=== PATIENT | male | born 1975 | race African-American/Black ===

== ENCOUNTER 2023-02-21 02:31 | Emergency (ER) | payer OTHER ==
[2023-02-21 02:42] VITALS: RESP 16; TEMP 98.6
[2023-02-21] MEDS ORDERED: KETOROLAC 15 MG/ML 1 ML VIAL IM STA (03:08)
--- NOTE | 2023-02-21 04:17 | ED ---
Chest Pain HPI - General Chief Complaint: Chest Pain Stated Complaint: Chest pain Time Seen by Provider: 02/21/23 02:40 Source: patient, EMS Mode of arrival: EMS Limitations: no limitations - History of Present Illness Initial Comments: 47-year-old male with past history of alcohol abuse, rhabdomyolysis who presents to the emergency department from [place]. States that he was having trouble sleeping because he was having bilateral flank pain with dark urine. States that he was having painful urination. Reports to history of similar symptoms in the past when he was in rhabdomyolysis. States that he has had it twice. He also reports a left-sided chest wall pain. Reports a history of [place] with no stent placement. The chest pain is an achy sensation without radiation. No associated shortness of breath. No fevers, chills or cough. Denies history of DVT or PE. No calf pain or swelling. He is at [place]. States his last drink of alcohol was 4 days ago. No other alleviating, precipitating or modifying factors - Related Data Allergies Allergy/AdvReac Type Severity Reaction Status Date / Time No Known Allergies Allergy Verified 07/26/22 11:06 Review of Systems ROS Statement: Those systems with pertinent positive or pertinent negative responses have been documented in the HPI. ROS Other: All systems not noted in ROS Statement are negative. Past Medical History Past Medical History: Asthma, Hypertension, Myocardial Infarction ([place]) Additional Past Medical History / Comment(s): rhabdomylosis, etoh withdrawl seizures History of Any Multi-Drug Resistant Organisms: None Reported Past Surgical History: Orthopedic Surgery Past Psychological History: Bipolar, PTSD Smoking Status: Current every day smoker Past Alcohol Use History: Daily Past Drug Use History: None Reported General Exam Limitations: no limitations General appearance: alert, in no apparent distress Head exam: Present: atraumatic, normocephalic, normal inspection Eye exam: Present: normal appearance, PERRL, EOMI. Absent: scleral icterus, conjunctival injection, periorbital swelling ENT exam: Present: normal exam, mucous membranes moist Neck exam: Present: normal inspection. Absent: tenderness, meningismus, lymphadenopathy Respiratory exam: Present: normal lung sounds bilaterally. Absent: respiratory distress, wheezes, rales, rhonchi, stridor Cardiovascular Exam: Present: regular rate, normal rhythm, normal heart sounds. Absent: systolic murmur, diastolic murmur, rubs, gallop, clicks GI/Abdominal exam: Present: soft, normal bowel sounds. Absent: distended, tenderness, guarding, rebound, rigid Extremities exam: Present: normal inspection, full ROM, normal capillary refill. Absent: tenderness, pedal edema, joint swelling, calf tenderness Back exam: Present: normal inspection Neurological exam: Present: alert, oriented X3, CN II-XII intact Psychiatric exam: Present: normal affect, normal mood Skin exam: Present: warm, dry, intact, normal color. Absent: rash Course Vital Signs 02/21/23 02/21/23 02:35 05:30 Temperature 98.6 F 98.6 F Pulse Rate 82 77 Respiratory 16 16 Rate Blood Pressure 163/89 155/104 O2 Sat by Pulse 98 96 Oximetry Chest Pain MDM - MDM Was pt. sent in by a medical professional or institution (, [facility], CANAL EQUIPMENT MAINTENANCE SUPERVISOR, urgent care, hospital, or group home...) When possible be specific @ -No Did you speak to anyone other than the patient for history (EMS, parent, family, police, friend...)? What history was obtained from this source @ -Spoke with EMS who sent the patient in Review nursing and triage notes (agree or disagree)? Why? @ -I reviewed and agree with nursing and triage notes Were old charts reviewed (outside hosp., previous admission, EMS record, old EKG, old radiological studies, urgent care reports/EKG's, group home records)? Report findings @ -I checked the patient's chart for an old EKG however he does not have one Differential Diagnosis (chest pain, altered mental status, abdominal pain women, abdominal pain men, vaginal bleeding, weakness, fever, dyspnea, syncope, headache, dizziness, GI bleed, back pain, seizure, CVA, palpatations, mental health, musculoskeletal)? @ -Differential Chest Pain: Stable Angina, Unstable Angina, STEMI, NSTEMI Aortic Dissection, Pneumothorax, Musculoskeletal, Esophageal Spasm GERD, Cholecystitis, Pancreatitis, Zoster, this is not meant to be an all-inclusive list. EKG interpreted by me (3pts min.). @ -Yes and demonstrates sinus rhythm with a rate of 80. [place] interval 136. QRS 97. QTC of 394. Inverted T waves with ST depression 2, 3, aVF. J-point elevation the 1 through V3. No old for comparison X-rays interpreted by me (1pt min.). @ -Yes and demonstrates no acute intrathoracic process CT interpreted by me (1pt min.). @ -None done U/S interpreted by me (1pt. min.). @ -None done What testing was considered but not performed or refused? (CT, X-rays, U/S, labs)? Why? @ -Echo and serial troponins. Patient does not want to be admitted What meds were considered but not given or refused? Why? @ -None Did you discuss the management of the patient with other professionals ( professionals i.e. , PA, CANAL EQUIPMENT MAINTENANCE SUPERVISOR, lab, RT, psych nurse, clinical social work therapist, chair spring assembler, teacher, aoc operations intelligence officer, case picker)? Give summary @ -No Was smoking cessation discussed for >3mins.? @ -No Was critical care preformed (if so, how long)? @ -No Were there social determinants of health that impacted care today? How? (Homelessness, low income, unemployed, alcoholism, drug addiction, transportation, low edu. Level, literacy, decrease access to med. care, fpc, rehab)? @ -Patient is currently in rehab Was there de-escalation of care discussed even if they declined (Discuss DNR or withdrawal of care, Hospice)? DNR status @ -No What co-morbidities impacted this encounter? (DM, HTN, Smoking, COPD, CAD, Cancer, CVA, ARF, Chemo, Hep., AIDS, mental health diagnosis, sleep apnea, morbid obesity)? @ -etoh abuse, rhabdo, hx [place] Was patient admitted / discharged? Hospital course, mention meds given and route, prescriptions, significant lab abnormalities, going to OR and other p ertinent info. @ -Upon arrival patient was placed into room 4. A thorough history and physical exam is performed. He is placed on continuous pulse ox and cardiac monitoring. 12 lead EKG was obtained. Lab studies are conducted. Results are discussed with the patient. I did discuss diagnosis, differential and treatment options. I did recommend admission however patient would like to go home at this time. Informed him that he does have inverted T waves however he states that this is chronic for him. He states that his chest pain has resolved and he would like to go to go back to rehab. Patient is made aware of the risks of leaving and does accept these risks. He'll be discharged but needs to follow up with his primary care doctor for further management of his symptoms and return for any new or worsening symptoms. Patient was agreeable to the plan and was discharged back to [place] Undiagnosed new problem with uncertain prognosis? @ -yes Drug Therapy requiring intensive monitoring for toxicity (Heparin, Nitro, Insulin, Cardizem)? @ -No Were any procedures done? @ -No Diagnosis/symptom? @ -acute chest pain, acute dysuria Acute, or Chronic, or Acute on Chronic? @ -acute Uncomplicated (without systemic symptoms) or Complicated (systemic symptoms)? @ -complicated Side effects of treatment? @ -No Exacerbation, Progression, or Severe Exacerbation? @ -No Poses a threat to life or bodily function? How? (Chest pain, [place], [place], pneumonia, PE, COPD, DKA, ARF, appy, cholecystitis, CVA, Diverticulitis, Homicidal, Suicidal, threat to staff... and all critical care pts) @ -No Disposition Clinical Impression: Chest pain Disposition: HOME SELF-CARE Condition: Stable Instructions (If sedation given, give patient instructions): Chest Pain (ED) Additional Instructions: Please follow-up with your primary care doctor at your earliest convenience. Return to the emergency room for any new or worsening symptoms Is patient prescribed a controlled substance at d/c from ED?: No Referrals: Solomon Currie MD [Primary Care Provider] - 1-2 days Time of Disposition: 05:09
[2023-02-21] MEDS ORDERED: SODIUM CHLORIDE 0.9% 1,000 ML IV ONE (04:26)
[2023-02-21 04:40] LABS: ALT 55 U/L (4-49); AST 43 U/L (17-59); African American GFR (CKD) >90 (>60 ml/min/1.73 sqM); Albumin 4.1 g/dL (3.5-5.0); Alkaline Phosphatase 78 U/L (38-126); Anion Gap 8 mmol/L; Blood Urea Nitrogen 16 mg/dL (9-20); Calcium 9.3 mg/dL (8.4-10.2); Carbon Dioxide 24 mmol/L (22-30); Chloride 103 mmol/L (98-107); Creatine Kinase 852 U/L (55-170); Glucose 104 mg/dL (74-99); Lipase 130 U/L (23-300); Magnesium 2.1 mg/dL (1.6-2.3); Non-African American GFR(CKD) >90 (>60 ml/min/1.73 sqM); Sodium 135 mmol/L (137-145); Total Bilirubin 0.4 mg/dL (0.2-1.3); Total Protein 6.9 g/dL (6.3-8.2)
[2023-02-21 04:54] LABS: Basophils % (A) 0 %; Eosinophils # (A) 0.3 k/uL (0-0.7); Eosinophils % (A) 3 %; HCT 44.1 % (39.0-53.0); HGB 14.6 gm/dL (13.0-17.5); Lymphocytes # (A) 2.2 k/uL (1.0-4.8); Lymphocytes % (A) 22 %; MCH 32.4 pg (25.0-35.0); MCHC 33.2 g/dL (31.0-37.0); MCV 97.8 fL (80.0-100.0); Mean Platelet Volume 8.1; Monocytes # (A) 0.7 k/uL (0-1.0); Monocytes % (A) 7 %; Neutrophils # (A) 6.7 k/uL (1.3-7.7); Neutrophils % (A) 66 %; Platelet Count 240 k/uL (150-450); RBC 4.51 m/uL (4.30-5.90); WBC 10.1 k/uL (3.8-10.6)
[2023-02-21 04:57] LABS: Appearance,Urine Clear (Clear); Bilirubin,Urine Negative (Negative); Blood,Urine Negative (Negative); Color,Urine Colorless; Glucose,Urine (UA) Negative (Negative); Ketones,Urine Negative (Negative); Leukocyte Esterase,Urine Negative (Negative); Nitrite,Urine Negative (Negative); PH, Urine 6.5 (5.0-8.0); Protein,Urine Negative (Negative); Specific Gravity,Urine 1.016 (1.001-1.035); Urobilinogen,Urine <2.0 mg/dL (<2.0)
[2023-02-21 04:58] LABS: Prothrombin Time 10.7 sec (9.0-12.0)
--- NOTE | 2023-02-21 05:26 | XR ---
EXAM: XR Chest, 2 Views CLINICAL HISTORY: ITS.REASON XR Reason: Chest Pain TECHNIQUE: Frontal and lateral views of the chest. COMPARISON: No relevant prior studies available. FINDINGS: Lungs: Unremarkable. No consolidation. Pleural space: Unremarkable. No pneumothorax. Heart: Unremarkable. No cardiomegaly. Mediastinum: Unremarkable. Bones/joints: Mild dextroscoliosis of the thoracolumbar spine versus positional appearance. Degenerative changes. IMPRESSION: No acute findings in the chest.
[2023-02-21 05:39] VITALS: BP 155/104; PULSE 77
== END 2023-02-21 05:39 | disposition home or self-care (01) ==
LOC: EC 02:31
DX: R07.89 Other chest pain (principal); J45.909 Unspecified asthma, uncomplicated; I10 Essential (primary) hypertension; I25.2 Old myocardial infarction; F17.200 Nicotine dependence, unspecified, uncomplicated; Z86.59 Personal history of other mental and behavioral disorders
CPT/HCPCS: 36415; 93005; 80053; 82550; 83690; 83735; 84484; 85025; 85610; 85730; 81003; 71046; 99285; 96360; 96372; J1885

== ENCOUNTER 2023-10-21 23:26 | Inpatient (IN) | payer OTHER ==
--- NOTE | 2023-10-21 23:57 | ED ---
Chest Pain HPI - General Source: patient, RN notes reviewed, old records reviewed Mode of arrival: ambulatory Limitations: no limitations - History of Present Illness MD Complaint: chest pain -: hour(s) Onset: during rest, during exertion Pain Location: left chest Pain Radiation: none Severity: moderate Severity scale (1-10): 4 Quality: tightness, sharp Consistency: constant Improves With: nothing Anginal Symptoms: dyspnea, sense of impending doom Other Symptoms: palpitations Treatments Prior to Arrival: none <Osmin Gutierrez - Last Filed: 10/22/23 05:46> <Carlos Santo - Last Filed: 10/22/23 13:14> - General Chief Complaint: Chest Pain Stated Complaint: chest pain Mental health etoh Time Seen by Provider: 10/21/23 23:56 - History of Present Illness Initial Comments: This is a 47-year-old male to ER for evaluation of chest pain chest pain with severe alcohol intoxication and anxiety currently. Patient has history of high blood pressure and asthma history of recent drug use (Osmin Gutierrez) - Related Data Home Medications Medication Instructions Recorded Confirmed ARIPiprazole [Abilify] 10 mg PO HS 10/22/23 10/22/23 Acetaminophen Tab [Tylenol Tab] 1,000 mg PO Q6HR PRN 10/22/23 10/22/23 Albuterol Inhaler [Ventolin Hfa 2 puff INHALATION RT-Q4H PRN 10/22/23 10/22/23 Inhaler] Fluticasone Propion/Salmeterol 1 puff INHALATION RT-BID 10/22/23 10/22/23 [Advair 250-50 Diskus] Ibuprofen [Motrin] 800 mg PO Q8H PRN 10/22/23 10/22/23 Melatonin 10 mg PO HS PRN 10/22/23 10/22/23 Multivitamins, Thera [Multivitamin 1 tab PO DAILY 10/22/23 10/22/23 (formulary)] Nicotine 21Mg/24Hr Patch [Habitrol] 1 patch TRANSDERM DAILY PRN 10/22/23 10/22/23 amLODIPine [Norvasc] 5 mg PO DAILY 10/22/23 10/22/23 busPIRone HCl [Buspar] 10 mg PO TID PRN 10/22/23 10/22/23 hydrOXYzine pamoate [Vistaril] 50 mg PO TID PRN 10/22/23 10/22/23 hydrOXYzine pamoate [Vistaril] 100 mg PO HS PRN 10/22/23 10/22/23 traZODone HCL [Desyrel] 50 mg PO HS PRN 10/22/23 10/22/23 Allergies Allergy/AdvReac Type Severity Reaction Status Date / Time haloperidol Allergy eyes swell Verified 10/22/23 10:18 shut methylphenidate Allergy eyes swell Verified 10/22/23 10:18 [From Ritalin] shut Poultry [[place]] Allergy Swelling Verified 10/22/23 10:18 Review of Systems ROS Other: All systems not noted in ROS Statement are negative. <Osmin Gutierrez - Last Filed: 10/22/23 05:46> ROS Other: All systems not noted in ROS Statement are negative. <Carlos Santo - Last Filed: 10/22/23 13:14> ROS Statement: Those systems with pertinent positive or pertinent negative responses have been documented in the HPI. EKG Findings - EKG Comments: EKG Findings:: EKG is sinus tachycardia 100 NH 122 QRS 103 QTc 390 - EKG Results: EKG: interpreted by ERMD <Osmin Gutierrez - Last Filed: 10/22/23 05:46> Past Medical History Past Medical History: Asthma, Hypertension, Myocardial Infarction ([place]) Additional Past Medical History / Comment(s): rhabdomylosis, etoh withdrawl seizures History of Any Multi-Drug Resistant Organisms: None Reported Past Surgical History: Orthopedic Surgery Past Psychological History: Bipolar, PTSD Smoking Status: Current every day smoker Past Alcohol Use History: Abuse, Daily, Heavy Past Drug Use History: Cocaine <Osmin Gutierrez - Last Filed: 10/22/23 05:46> General Exam Limitations: no limitations General appearance: appears intoxicated, anxious Head exam: Present: atraumatic, normocephalic, normal inspection Eye exam: Present: normal appearance, PERRL, EOMI. Absent: scleral icterus, conjunctival injection, periorbital swelling ENT exam: Present: normal exam, mucous membranes moist Neck exam: Present: normal inspection. Absent: tenderness, meningismus, lymphadenopathy Respiratory exam: Present: normal lung sounds bilaterally. Absent: respiratory distress, wheezes, rales, rhonchi, stridor Cardiovascular Exam: Present: regular rate, normal rhythm, normal heart sounds. Absent: systolic murmur, diastolic murmur, rubs, gallop, clicks GI/Abdominal exam: Present: soft, normal bowel sounds. Absent: distended, tenderness, guarding, rebound, rigid Extremities exam: Present: normal inspection, full ROM, normal capillary refill. Absent: tenderness, pedal edema, joint swelling, calf tenderness Back exam: Present: normal inspection Neurological exam: Present: alert, oriented X3, CN II-XII intact Psychiatric exam: Present: normal affect, normal mood Skin exam: Present: warm, dry, intact, normal color. Absent: rash <Osmin Gutierrez - Last Filed: 10/22/23 05:46> Course <Osmin Gutierrez - Last Filed: 10/22/23 05:46> Vital Signs 10/21/23 10/22/23 10/22/23 23:49 00:35 10:41 Temperature 97.6 F Pulse Rate 103 H 103 H 95 Respiratory 20 19 18 Rate Blood Pressure 203/163 148/91 148/88 O2 Sat by Pulse 99 97 97 Oximetry - Reevaluation(s) Reevaluation #1: 10/22/23 03:42 Medical records reviewed (Osmin Gutierrez) Reevaluation #2: 10/22/23 03:42 Patient will be seeing psychiatric evaluation and receive psychiatric evaluation once clinically sober (Osmin Gutierrez) Reevaluation #3: Was pt. sent in by a medical professional or institution (, PA, DBA DEVELOPER, urgent care, hospital, or alf...) When possible be specific @ -no Did you speak to anyone other than the patient for history (EMS, parent, family, police, friend...)? What history was obtained from this source @ -no Did you review nursing and triage notes (agree or disagree)? Why? @ -agree Are old charts reviewed (outside hosp., previous admission, EMS record, old EKG, old radiological studies, urgent care reports/EKG's, alf records)? Report findings @ -yes Differential Diagnosis (chest pain, altered mental status, abdominal pain women, abdominal pain men, vaginal bleeding, weakness, fever, dyspnea, syncope, headache, dizziness, GI bleed, back pain, seizure, CVA, palpatations, mental health, musculoskeletal)? @ -prior EKG interpreted by me (3pts min.). @ -yes X-rays interpreted by me (1pt min.). @ -yes negative for acute disease CT interpreted by me (1pt min.). @ -no U/S interpreted by me (1pt. min.). @ -no What testing was considered but not performed or refused? (CT, X-rays, U/S, labs)? Why? @ -none What meds were considered but not given or refused? Why? @ -none Did you discuss the management of the patient with other professionals (professionals i.e. , PA, DBA DEVELOPER, lab, RT, psych nurse, oncology social work, associate medical director, teacher, chief lending officer, case making machine operator)? Give summary @ -no Was smoking cessation discussed for >3mins.? @ -no Was critical care preformed (if so, how long)? @ -no Were there social determinants of health that impacted care today? How? (Homelessness, low income, unemployed, alcoholism, drug addiction, transportation, low edu. Level, literacy, decrease access to med. care, care home, rehab)? @ -none Was there de-escalation of care discussed even if they declined (Discuss DNR or withdrawal of care, Hospice)? DNR status @ -no What co-morbidities impacted this encounter? (DM, HTN, Smoking, COPD, CAD, Cancer, CVA, ARF, Chemo, Hep., AIDS, mental health diagnosis, sleep apnea, morbid obesity)? @ -none Was patient admitted / discharged? Hospital course, mention meds given and route, prescriptions, significant lab abnormalities, going to OR and other pertinent info. @ - Undiagnosed new problem with uncertain prognosis? @ -no Drug Therapy requiring intensive monitoring for toxicity (Heparin, Nitro, Insulin, Cardizem)? @ -no Were any procedures done? @ -no Diagnosis/symptom? @ - Acute, or Chronic, or Acute on Chronic? @ -Acute Uncomplicated (without systemic symptoms) or Complicated (systemic symptoms)? @ -Complicated Side effects of treatment? @ -no Exacerbation, Progression, or Severe Exacerbation? @ -exacerbation Poses a threat to life or bodily function? How? (Chest pain, [place], [place], pneumonia, PE, COPD, DKA, ARF, appy, cholecystitis, CVA, Diverticulitis, Homicidal, Suicidal, threat to staff... and all critical care pts) @ -yes (Osmin Gutierrez) Reevaluation #4: Differential Chest Pain: Stable Angina, Unstable Angina, STEMI, NSTEMI Aortic Dissection, Pneumothorax, Musculoskeletal, Esophageal Spasm GERD, Cholecystitis, Pancreatitis, Zoster, this is not meant to be an all-inclusive list. (Osmin Gutierrez) Chest Pain MDM <Carlos Santo - Last Filed: 10/22/23 13:14> - [facility] Patient care signed out to me by previous shift physician, Dr. Schuyler Gómez. Briefly, patient is a 47-year-old male presents emergency department for alcohol intoxication along with anxiety. Plan at signout was to follow-up with pending EPS recommendations. EPS notified me at around 12:57 PM that patient showing significant signs of alcohol withdrawal along with hallucinations. Patient is alcohol dependent. They did not feel comfortable given his degree of withdrawal symptoms that he could be admitted to inpatient psychiatric unit. They request patient be admitted medically for alcohol withdrawal with psychiatry and consult. Case discussed with hospitalist for admission. (Carlos Santo) Disposition Is patient prescribed a controlled substance at d/c from ED?: No Time of Disposition: 05:45 <Osmin Gutierrez - Last Filed: 10/22/23 05:46> Decision Time: 12:59 <Carlos Santo - Last Filed: 10/22/23 13:14> Clinical Impression: Alcohol withdrawal Condition: Fair Referrals: Solomon Currie MD [Primary Care Provider] - 1-2 days
[2023-10-22] MEDS: cloNIDine HCL 0.1 MG TAB PO STA (00:25)
[2023-10-22] MEDS: SODIUM CHLORIDE 0.9% 500 ML 500 ML IV STA (00:47)
[2023-10-22] MEDS: SODIUM CHLORIDE 0.9% 1,000 ML IV STA (00:47)
[2023-10-22] MEDS: LORazepam 2 MG/ML INJ IV STA (00:49)
[2023-10-22 00:55] LABS: Basophils # (A) 0.1 k/uL (0-0.2); Basophils % (A) 1 %; Eosinophils # (A) 0.3 k/uL (0-0.7); Eosinophils % (A) 3 %; HCT 46.7 % (39.0-53.0); HGB 15.1 gm/dL (13.0-17.5); Lymphocytes % (A) 25 %; MCH 32.2 pg (25.0-35.0); MCHC 32.4 g/dL (31.0-37.0); MCV 99.4 fL (80.0-100.0); Mean Platelet Volume 7.3; Monocytes # (A) 0.6 k/uL (0-1.0); Monocytes % (A) 5 %; Neutrophils # (A) 7.5 k/uL (1.3-7.7); Neutrophils % (A) 64 %; Platelet Count 285 k/uL (150-450); RDW 13.1 % (11.5-15.5); WBC 11.6 k/uL (3.8-10.6)
--- NOTE | 2023-10-22 01:14 | XR ---
EXAM: XR Chest, 2 Views CLINICAL HISTORY: ITS.REASON XR Reason: Chest Pain TECHNIQUE: Frontal and lateral views of the chest. COMPARISON: No relevant prior studies available. FINDINGS: Lungs: No consolidation or mass. Pleural space: No effusion. Heart: No cardiomegaly. Bones/joints: No acute findings. IMPRESSION: No acute cardiopulmonary process.
[2023-10-22 01:15] LABS: ALT 61 U/L (4-49); AST 58 U/L (17-59); African American GFR (CKD) >90 (>60 ml/min/1.73 sqM); Albumin 4.4 g/dL (3.5-5.0); Alkaline Phosphatase 68 U/L (38-126); Anion Gap 11 mmol/L; Blood Urea Nitrogen 23 mg/dL (9-20); Calcium 8.9 mg/dL (8.4-10.2); Carbon Dioxide 24 mmol/L (22-30); Chloride 108 mmol/L (98-107); Glucose 81 mg/dL (74-99); Lipase 162 U/L (23-300); Magnesium 2.2 mg/dL (1.6-2.3); Non-African American GFR(CKD) 80 (>60 ml/min/1.73 sqM); Potassium 4.5 mmol/L (3.5-5.1); Sodium 143 mmol/L (137-145); Total Bilirubin 0.5 mg/dL (0.2-1.3)
[2023-10-22 01:20] LABS: Alcohol 179 mg/dL
[2023-10-22 02:32] LABS: Prothrombin Time 10.8 sec (10.0-12.5)
[2023-10-22 02:43] LABS: Amphetamine Screen,Urine Not Detected (NotDetected); Barbiturate Screen,Urine Not Detected (NotDetected); Benzodiazepines Screen,Urine Detected (NotDetected); Cocaine Screen,Urine Not Detected (NotDetected); Methadone Screen, Urine Not Detected (NotDetected); Opiate Screen,Urine Not Detected (NotDetected); Oxycodone Screen, Urine Not Detected (NotDetected); Phencyclidine Screen,Urine Not Detected (NotDetected); Tricyclic Antidepressant,Urine Not Detected (NotDetected); Urn Cannabinoid Scrn Not Detected (NotDetected)
[2023-10-22] MEDS: ACETAMINOPHEN TAB 500 MG TAB PO STA (06:33)
[2023-10-22] MEDS: IPRATROPIUM-ALBUTEROL 3 ML NEB INHALATION ONE (07:18)
[2023-10-22] MEDS: ALBUTEROL HFA INHALER INHALATION ONE (08:47)
[2023-10-22 11:24] VITALS: RESP 18
[2023-10-22] MEDS ORDERED: LORazepam 2 MG/ML INJ IV PRN ×2 (12:56)
[2023-10-22] MEDS ORDERED: NALOXONE 0.4 MG/ML 1 ML VIAL IV PRN (13:12)
[2023-10-22] MEDS: LORazepam 2 MG/ML INJ IV PRN (14:23)
[2023-10-22] MEDS: THIAMINE 100 MG/ML 2 ML VIAL IM STA (17:25)
--- NOTE | 2023-10-22 17:39 | P.HPIM ---
History of Present Illness H&P Date: 10/22/23 Patient is a 47-year-old male with history of alcohol dependence, depression, anxiety, psychotic disorder, COPD presenting with alcohol intoxication and suicidal thoughts. He drinks 1 pint of Hiral daily for the last 4 years. He claims that in the past he has had episodes of alcohol withdrawal seizures. He did go to rehab about 3 months ago, but resumed drinking soon after. He smokes 1 pack/day, denies any illicit drug use. Currently denying any chest pain, shortness of breath, abdominal pain, nausea, vomiting, urinary or bowel complaints. In the ED, temperature was 97.6, pulse 103, blood pressure 203/763, saturating at 99% on room air. WBC 11.6, creatinine 1.1, troponin negative, urine positive for benzos, serum alcohol 179, COVID-negative. Patient being admitted for alcohol withdrawal. Psychiatry consulted. Pertinent positives and negatives as discussed in HPI, a complete review of systems was performed and all other systems are negative. Patient seen and examined at bedside. Vital signs reviewed General: nontoxic, no distress, appears at stated age Derm: warm, dry, left knee abrasion Head: atraumatic, normocephalic, symmetric Eyes: EOMI, no lid lag, anicteric sclera, pupils equal round reactive to light ENT: Nose and ears atraumatic Neck: No thyromegaly, supple Mouth: no lip lesion, mucus membranes moist Cardiovascular: S1S2 reg, no murmur, no edema Lungs: clear to auscultation bilateral, no rhonchi, no rales, no wheeze, no accessory muscle use Abdominal: soft, nontender to palpation, no guarding, no appreciable organomegaly Ext: no gross muscle atrophy, muscle strength muscle strength 5 out of 5 in all 4 extremities, no contractures Neuro: CN II-XII grossly intact Psych: Alert, oriented, appropriate affect Assessment/Plan: Active: Alcohol dependence Alcohol withdrawal syndrome -Ativan IV as needed per CIWA score, monitor for sedation -Telemetry monitoring Hypertensive urgency -Restart home amlodipine 5 mg daily -Likely also elevated in the setting of alcohol withdrawal Acute psychosis Suicidal ideations History of depression -Pending recommendations from psychiatry -Suicide precautions, sitter at bedside Chronic: COPD, not in exacerbation The patient is admitted with an anticipated greater than 2 midnight stay as inpatient status for evaluation of alcohol withdrawal. Surrogate decision-maker: Mother CODE STATUS: Full code DVT prophylaxis: Lovenox Anticipated discharge date: Pending clinical course Anticipated discharge place: Pending clinical course A total of 55 minutes was spent on the care of this complex patient more than 50% of the time was spent in counseling and care coordination. Past Medical History Past Medical History: Asthma, Hypertension, Myocardial Infarction ([place]) Additional Past Medical History / Comment(s): rhabdomylosis, etoh withdrawl seizures History of Any Multi-Drug Resistant Organisms: None Reported Past Surgical History: Orthopedic Surgery Past Psychological History: Bipolar, PTSD Smoking Status: Current every day smoker Past Alcohol Use History: Abuse, Daily, Heavy Past Drug Use History: Cocaine Medications and Allergies Home Medications Medication Instructions Recorded Confirmed Type ARIPiprazole [Abilify] 10 mg PO HS 10/22/23 10/22/23 History Acetaminophen Tab [Tylenol Tab] 1,000 mg PO Q6HR PRN 10/22/23 10/22/23 History Albuterol Inhaler [Ventolin Hfa 2 puff INHALATION RT-Q4H PRN 10/22/23 10/22/23 History Inhaler] Fluticasone Propion/Salmeterol 1 puff INHALATION RT-BID 10/22/23 10/22/23 History [Advair 250-50 Diskus] Ibuprofen [Motrin] 800 mg PO Q8H PRN 10/22/23 10/22/23 History Melatonin 10 mg PO HS PRN 10/22/23 10/22/23 History Multivitamins, Thera [Multivitamin 1 tab PO DAILY 10/22/23 10/22/23 History (formulary)] Nicotine 21Mg/24Hr Patch [Habitrol] 1 patch TRANSDERM DAILY PRN 10/22/23 10/22/23 History amLODIPine [Norvasc] 5 mg PO DAILY 10/22/23 10/22/23 History busPIRone HCl [Buspar] 10 mg PO TID PRN 10/22/23 10/22/23 History hydrOXYzine pamoate [Vistaril] 50 mg PO TID PRN 10/22/23 10/22/23 History hydrOXYzine pamoate [Vistaril] 100 mg PO HS PRN 10/22/23 10/22/23 History traZODone HCL [Desyrel] 50 mg PO HS PRN 10/22/23 10/22/23 History Allergies Allergy/AdvReac Type Severity Reaction Status Date / Time haloperidol Allergy eyes swell Verified 10/22/23 10:18 shut methylphenidate Allergy eyes swell Verified 10/22/23 10:18 [From Ritalin] shut Poultry [[place]] Allergy Swelling Verified 10/22/23 10:18 Physical Exam Vitals: Vital Signs Temp Pulse Resp BP Pulse Ox 10/22/23 10:41 95 18 148/88 97 10/22/23 00:35 103 H 19 148/91 97 10/21/23 23:49 97.6 F 103 H 20 203/163 99 Intake and Output 10/22/23 10/22/23 10/22/23 06:59 14:59 22:59 Other: Weight 99.79 kg Results CBC & Chem 7: 10/22/23 00:50 10/22/23 00:50 Labs: Abnormal Lab Results - Last 24 Hours (Table) 10/22/23 10/22/23 10/22/23 Range/Units 00:50 00:50 01:42 WBC 11.6 H (3.8-10.6) k/uL Chloride 108 H (98-107) mmol/L BUN 23 H (9-20) mg/dL ALT 61 H (4-49) U/L U Benzodiazepines Scrn Detected H (NotDetected)
[2023-10-22] MEDS: ALBUTEROL NEBULIZED 2.5 MG/3 ML INHALATION PRN (19:44)
[2023-10-22] MEDS: SYMBICORT 80-4.5 MCG INHALER INHALATION SCH (19:44)
[2023-10-22] MEDS: BACITRACIN ZINC 500 UNIT/GM OINT 28.4 GM TUBE TOPICAL SCH (21:59)
[2023-10-22] MEDS ORDERED: LORazepam 1 MG/0.5 ML VIAL IV PRN (23:12)
[2023-10-22] MEDS: LORazepam 1 MG/0.5 ML VIAL IV PRN (23:19)
[2023-10-22] MEDS: ACETAMINOPHEN TAB 500 MG TAB PO PRN (23:23)
[2023-10-23] MEDS ORDERED: LORazepam 1 MG/0.5 ML VIAL IV PRN (08:23)
[2023-10-23] MEDS: amLODIPine 5 MG TAB PO SCH (10:16)
[2023-10-23] MEDS: THIAMINE 100 MG TAB PO SCH (10:16)
[2023-10-23] MEDS: ENOXAPARIN 40 MG/0.4 ML SYRINGE SQ SCH (10:19)
[2023-10-23] MEDS ORDERED: LORazepam 1 MG TAB PO PRN ×2 (11:16)
[2023-10-23] MEDS ORDERED: LORazepam 0.5 MG TAB PO PRN (11:16)
[2023-10-23] MEDS ORDERED: hydrOXYzine pamoate 25 MG CAP PO PRN (11:18)
[2023-10-23] MEDS ORDERED: traZODone HCL 50 MG TAB PO PRN (11:18)
--- NOTE | 2023-10-23 11:22 | P.DS ---
Providers Date of admission: 10/22/23 13:13 Expected date of discharge: 10/23/23 Attending physician: Sav Deshpande MD Consults: 10/22/23 13:12 Consult Physician Routine Consulting Provider: Enoc Lopez Consult Reason/Comments: psycosis Do you want consulting provider notified?: Already Contacted Primary care physician: Solomon Currie MD Hospital Course: Discharge Diagnosis: Alcohol withdrawal in active alcoholic Hypertensive urgency, likely multifactorial secondary to alcohol withdrawal and acute psychosis. Patient placed back on home amlodipine 5 mg daily and was treated for signs/symptoms of withdrawal. Blood pressure 148/88 with heart rate of 95 at time of discharge. Acute psychosis Suicidal ideations Hospital Course: Patient is a 47-year-old male with a past medical history of alcohol dependence drinking approximately 1 pint daily, previous alcohol withdrawal seizures, depression, anxiety, psychotic disorder, COPD presenting with alcohol intoxication and suicidal thoughts. Upon arrival to our facility, patient underwent evaluation. Vital signs in the emergency department revealed blood pressure 203/163, heart rate 103, respiratory rate 20, temp 97.6 F, and SpO2 of 99% on room air. EKG completed showing sinus tachycardia at 100 bpm. Chest x- ray negative for acute cardiopulmonary process. Labs completed and reviewed. CBC showing leukocytosis with WBC count of 11.6. Coagulation profile normal findings. D-dimer is negative at 0.37. BMP showing elevated chloride of 108 and mild prerenal azotemia with BUN of 23. Liver profile showing elevated ALT of 61. Troponin was negative at less than 0.012. Urine drug screen positive for benzodiazepines. Serum alcohol level was 179. COVID PCR negative. Patient was admitted under our services for alcohol withdraw and hypertensive urgency. Psychiatry was consulted for acute psychosis and suicidal ideations. Patient was being medically manage for withdrawal, patient removed IV and refusing to allow any further IV access or lab draws. Patient acting out, was reported to have been masturbating in room. Patient reporting seeing aliens and feeling them touch him all over his body. Patient cleared from medical perspective for discharge to inpatient psychiatric unit. Physical exam: Vital signs reviewed and stable. General: Nontoxic, no distress and appears stated age. Derm: Skin warm and dry, normal coloration for ethnicity. Head: Atraumatic, normocephalic and symmetric. Eyes: EOMs intact, no lid lag, and anicteric sclera Mouth: no lip lesions, mucus membranes moist Cardiovascular: regular rate and rhythm with normal S1S2, no murmur, positive posterior tibial pulses bilaterally, and cap refill < 2 seconds. Lungs: Respirations even, regular, and unlabored on room air. Lungs CTA bilaterally, no rhonchi, no rales, no wheezing, and no accessory muscle usage. Abdominal: soft, nontender to palpation, no guarding, no appreciable organomegaly Ext: ROM intact. No gross muscle atrophy, no edema, no contractures Neuro: Speech clear, face symmetrical and CN II-XII grossly intact with no noted focal neuro deficits Psych: Alert and oriented to person, place, time. Patient reports visual, auditory, and tactile hallucinations. Patient inappropriate with staff. A total of 33 minutes of time were spent preparing this complex discharge summary. Pt was discharged on 10/23/2023 at 11:17 AM. Patient was seen independently by Nurse Practitioner. This document was prepared using [employer] dictation software. Please allow for errors in inside polisher while rare they do occur. Remy Dickerson NP rendered care for this patient independently, reviewed the findings and plan as documented in the note above. I did not physically speak with or examine the patient on this date. Patient Condition at Discharge: Stable Plan - Discharge Summary Discharge Rx Participant: Yes New Discharge Prescriptions: New Bacitracin Zinc Oint 1 applic TOPICAL BID each Thiamine [Vitamin B-1] 100 mg PO DAILY tab Continue amLODIPine [Norvasc] 5 mg PO DAILY hydrOXYzine pamoate [Vistaril] 50 mg PO TID PRN PRN Reason: Anxiety Nicotine 21Mg/24Hr Patch [Habitrol] 1 patch TRANSDERM DAILY PRN PRN Reason: Nicotine Cravings busPIRone HCl [Buspar] 10 mg PO TID PRN PRN Reason: Anxiety Multivitamins, Thera [Multivitamin (formulary)] 1 tab PO DAILY traZODone HCL [Desyrel] 50 mg PO HS PRN PRN Reason: sleep Ibuprofen [Motrin] 800 mg PO Q8H PRN PRN Reason: Pain Or Fever > 100.5 hydrOXYzine pamoate [Vistaril] 100 mg PO HS PRN PRN Reason: Anxiety/SLEEP Albuterol Inhaler [Ventolin Hfa Inhaler] 2 puff INHALATION RT-Q4H PRN PRN Reason: Shortness Of Breath Acetaminophen Tab [Tylenol] 1,000 mg PO Q6HR PRN PRN Reason: Pain Melatonin 10 mg PO HS PRN PRN Reason: SLEEP Fluticasone Propion/Salmeterol [Advair 250-50 Diskus] 1 puff INHALATION RT- BID ARIPiprazole [Abilify] 10 mg PO HS Discharge Medication List ARIPiprazole [Abilify] 10 mg PO HS 10/22/23 [History] Acetaminophen Tab [Tylenol] 1,000 mg PO Q6HR PRN 10/22/23 [History] Albuterol Inhaler [Ventolin Hfa Inhaler] 2 puff INHALATION RT-Q4H PRN 10/22/23 [History] Fluticasone Propion/Salmeterol [Advair 250-50 Diskus] 1 puff INHALATION RT-BID 10/22/23 [History] Ibuprofen [Motrin] 800 mg PO Q8H PRN 10/22/23 [History] Melatonin 10 mg PO HS PRN 10/22/23 [History] Multivitamins, Thera [Multivitamin (formulary)] 1 tab PO DAILY 10/22/23 [History] Nicotine 21Mg/24Hr Patch [Habitrol] 1 patch TRANSDERM DAILY PRN 10/22/23 [History] amLODIPine [Norvasc] 5 mg PO DAILY 10/22/23 [History] busPIRone HCl [Buspar] 10 mg PO TID PRN 10/22/23 [History] hydrOXYzine pamoate [Vistaril] 50 mg PO TID PRN 10/22/23 [History] hydrOXYzine pamoate [Vistaril] 100 mg PO HS PRN 10/22/23 [History] traZODone HCL [Desyrel] 50 mg PO HS PRN 10/22/23 [History] Bacitracin Zinc Oint 1 applic TOPICAL BID each 10/23/23 [Rx] Thiamine [Vitamin B-1] 100 mg PO DAILY tab 10/23/23 [Rx] Follow up Appointment(s)/Referral(s): Solomon Currie MD [Primary Care Provider] - 1-2 days Patient Instructions/Handouts: Medical Clearance for Psychiatric Care (GEN), Alcohol Use Disorder (DC) Activity/Diet/Wound Care/Special Instructions: Patient clinically sober at this time, he is refusing additional IV access, no need for further medical management. Patient medically cleared for discharge to inpatient psychiatric unit at this time. Discharge Disposition: TRANSFER TO PSYCH HOSP/UNIT
[2023-10-23] MEDS: LORazepam 1 MG TAB PO PRN (11:37)
[2023-10-23] MEDS: busPIRone HCl 10 MG TAB PO PRN (11:37)
[2023-10-23 12:55] VITALS: BP 145/96; PULSE 83; TEMP 97.9
[2023-10-23] MEDS: hydrOXYzine pamoate 25 MG CAP PO PRN (15:30)
[2023-10-23] MEDS ORDERED: ARIPiprazole 10 MG TAB PO SCH (21:00)
== END 2023-10-23 17:14 | DRG 775 ==
LOC: EC 23:26 → 5NMEDONC 10-22 13:13 → UNDODISIN 10-23 17:24
PROVIDERS: ADMIT Student in an Organized Health Care Education/Training Program; ATTEND Student in an Organized Health Care Education/Training Program
DX: F10.239 Alcohol dependence with withdrawal, unspecified (principal); R45.851 Suicidal ideations; F10.229 Alcohol dependence with intoxication, unspecified; F31.5 Bipolar disorder, current episode depressed, severe, with psychotic features; J44.89 Other specified chronic obstructive pulmonary disease; I16.0 Hypertensive urgency; Z11.52 Encounter for screening for COVID-19; Y90.6 Blood alcohol level of 120-199 mg/100 ml; D72.829 Elevated white blood cell count, unspecified; F43.10 Post-traumatic stress disorder, unspecified; I25.2 Old myocardial infarction; S80.212A Abrasion, left knee, initial encounter; R74.01 Elevation of levels of liver transaminase levels; F17.210 Nicotine dependence, cigarettes, uncomplicated; Z71.6 Tobacco abuse counseling; Z79.51 Long term (current) use of inhaled steroids; Z79.899 Other long term (current) drug therapy; Z88.8 Allergy status to other drugs, medicaments and biological substances
CPT/HCPCS: 36415; 71046; 80053; 80306; 80320; 83690; 83735; 84484; 85025; 85379; 85610; 85730; 87635; 93005; 94640; 94760; 96361; 96372; 96374; 96376; 99285

== ENCOUNTER 2023-10-23 16:59 | Inpatient (IN) | payer MEDICAID, OTHER ==
[2023-10-23] MEDS ORDERED: MAGNESIUM HYDROXIDE 2,400 MG/30 ML CUP PO PRN (17:07)
[2023-10-23] MEDS ORDERED: MAG HYDROX/AL HYDROX/SIMETH 355 ML BOTTLE PO PRN (17:07)
[2023-10-23] MEDS ORDERED: busPIRone HCl 10 MG TAB PO PRN (17:12)
[2023-10-23] MEDS: IBUPROFEN 800 MG TAB PO PRN (18:50)
[2023-10-23] MEDS: ALBUTEROL INHALER 60 PUFF/8 GM INHALER (MHU) INHALATION PRN (19:29)
[2023-10-23] MEDS: ARIPiprazole 10 MG TAB PO SCH (20:33)
[2023-10-23] MEDS: MELATONIN 5 MG TABLET PO PRN (20:35)
[2023-10-23] MEDS: hydrOXYzine HCL 25 MG TAB PO PRN (20:36)
[2023-10-23] MEDS: traZODone HCL 50 MG TAB PO PRN (20:36)
[2023-10-23] MEDS: SYMBICORT 80-4.5 MCG INHALER (MHU) INHALATION SCH (20:43)
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
[2023-10-23] MEDS: ACETAMINOPHEN TAB 325 MG TAB PO PRN (21:20)
--- NOTE | 2023-10-24 00:22 | P.CONS ---
History of Present Illness - Reason for Consult Consult date: 10/24/23 - History of Present Illness The patient is a 47-year-old male with a PMH of alcohol abuse, COPD, hypertension who who had presented to the emergency room for alcohol withdrawal. The patient had also reported hallucinations with depression. The patient was also noted to be in hypertensive urgency. The patient was initially admitted to the medical service for alcohol withdrawal and subsequently cleared for discharge to the mental health unit where he was seen and evaluated. Patient reports drinking 1-1/2 pints of hard liquor daily for the past several years. Last drink was just prior to presentation at the emergency room on 10/20. Patient reported feeling somewhat shaky at the time of interview but had no additional complaints. Denied experiencing chest discomfort, shortness of breath, fever, chills, cough, nausea, vomiting, abdominal pain, diarrhea. Review of systems: Pertinent positives and negatives as discussed in HPI, a complete review of systems was performed and all other systems are negative. Physical examination: General: non toxic, no distress, appears at stated age, obese Derm: no unusual rashes/lesions, no unusual ecchymoses, warm, dry Head: atraumatic, normocephalic, symmetric Eyes: EOMI, no lid lag, anicteric sclera ENT: Nose and ears atraumatic, no thrush, no pharyngeal erythema Neck: trachea midline, supple Mouth: no lip lesion, mucus membranes moist, some tongue fasciculations noted Cardiovascular: S1S2 reg, no murmur, no edema Lungs: CTA bilateral, no rhonchi, no rales , no accessory muscle use Abdominal: soft, nontender to palpation, no guarding Ext: no gross muscle atrophy, no contractures, Neuro: No gross focal neuro deficits noted Psych: Alert, oriented, appropriate affect Assessment: Alcohol abuse, impending withdrawal Leukocytosis, likely secondary to acute stressor with no signs of active infection at this time Psychosis Imaging: Chest x-ray was unremarkable with EKG showing sinus tachycardia 100 bpm with T wave inversion in leads III and aVF with T wave flattening in lead II. Data Review: Laboratory evaluation revealed urine toxicology for positive for benzodiazepines with coronavirus PCR negative, chloride 108, ALT 61, AST 58, troponin less than 0.012 Plan: [facility] protocol Monitor for signs of alcohol withdrawal Continue with thiamine and multivitamin Resume home antihypertensives and inhalers Defer management of psychosis to primary psychiatry service Thank you for allowing us to participate in the care of this patient. We will follow peripherally. Do not hesitate to contact us with questions. Someone can be reached from the [facility] hospitalist group at all hours of the day at [phone]. Past Medical History Past Medical History: Asthma, Hypertension, Myocardial Infarction (GA) Additional Past Medical History / Comment(s): rhabdomylosis, etoh withdrawl seizures Last Myocardial Infarction Date:: 2020 History of Any Multi-Drug Resistant Organisms: None Reported Past Surgical History: Orthopedic Surgery Smoking Status: Current every day smoker - Past Family History Father Family Medical History: COPD Medications and Allergies Home Medications Medication Instructions Recorded Confirmed Type ARIPiprazole [Abilify] 10 mg PO HS 10/22/23 10/23/23 History Acetaminophen Tab [Tylenol] 1,000 mg PO Q6HR PRN 10/22/23 10/23/23 History Albuterol Inhaler [Ventolin Hfa 2 puff INHALATION RT-Q4H PRN 10/22/23 10/23/23 History Inhaler] Fluticasone Propion/Salmeterol 1 puff INHALATION RT-BID 10/22/23 10/23/23 History [Advair 250-50 Diskus] Ibuprofen [Motrin] 800 mg PO Q8H PRN 10/22/23 10/23/23 History Melatonin 10 mg PO HS PRN 10/22/23 10/23/23 History Multivitamins, Thera [Multivitamin 1 tab PO DAILY 10/22/23 10/23/23 History (formulary)] Nicotine 21Mg/24Hr Patch [Habitrol] 1 patch TRANSDERM DAILY PRN 10/22/23 10/23/23 History amLODIPine [Norvasc] 5 mg PO DAILY 10/22/23 10/23/23 History busPIRone HCl [Buspar] 10 mg PO TID PRN 10/22/23 10/23/23 History hydrOXYzine pamoate [Vistaril] 50 mg PO TID PRN 10/22/23 10/23/23 History hydrOXYzine pamoate [Vistaril] 100 mg PO HS PRN 10/22/23 10/23/23 History traZODone HCL [Desyrel] 50 mg PO HS PRN 10/22/23 10/23/23 History Bacitracin Zinc Oint 1 applic TOPICAL BID each 10/23/23 10/23/23 Rx Thiamine [Vitamin B-1] 100 mg PO DAILY tab 10/23/23 10/23/23 Rx Allergies Allergy/AdvReac Type Severity Reaction Status Date / Time haloperidol Allergy eyes swell Verified 10/22/23 10:18 shut methylphenidate Allergy eyes swell Verified 10/22/23 10:18 [From Ritalin] shut Poultry [[place]] Allergy Swelling Verified 10/22/23 10:18 Physical Exam Vitals: Vital Signs Temp Pulse Resp BP 10/23/23 17:47 97.1 F L 85 16 139/92 Intake and Output 10/23/23 10/23/23 10/24/23 14:59 22:59 06:59 Other: Weight 104 kg
[2023-10-24] MEDS: LORazepam 1 MG TAB PO PRN ×2 (07:50→21:56)
[2023-10-24] MEDS: amLODIPine 5 MG TAB PO SCH (07:51)
[2023-10-24] MEDS: MULTIVITAMINS, THERA 1 EACH TAB PO SCH (07:51)
[2023-10-24] MEDS: THIAMINE 100 MG TAB PO SCH (07:51)
[2023-10-24] MEDS: NICOTINE 21MG/24HR PATCH TRANSDERM SCH (07:52)
[2023-10-24] MEDS: BACITRACIN ZINC 500 UNIT/GM OINT 28.4 GM TUBE TOPICAL PRN (11:13)
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
[2023-10-24] MEDS: busPIRone HCl 10 MG TAB PO SCH (17:33)
[2023-10-24] MEDS: traZODone HCL 100 MG TAB PO SCH (21:54)
[2023-10-25] MEDS: ESCITALOPRAM 10 MG TAB PO SCH (08:33)
--- NOTE | 2023-10-25 14:11 | P.PN ---
Subjective Progress Note Date: 10/25/23 Patient Name: Dino Fields Date of : 75 Patient Status: Inpatient Attending Provider: Joel Henderson Date: 10/25/23 Initialization Date: 10/24/23 14:21 Subjective data: The patient was seen chart was reviewed and case discussed with nursing staff Patient reports that he has been hospitalized for about 3 days now and that this is his fourth hospitalization He states that he was having some suicidal thoughts that he was going through withdrawal symptoms from drinking almost of a pint of vodka a day He states that he is moving through 2 rehab treatments in the past 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 Orientation times three Dressed and Groomed: Appropriately. Pleasant and cooperative. Psychomotor Activity: Normal. Speech: Normal in tone, quality, and quantity. Mood: I feel better but I am depressed Affect: Sad and labile. SI or HI: None. Perceptual disturbance: None. Thought Content: No paranoia or other delusional thinking noted. Thought Process: Normal. 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 Monitor MS and side effects of medications and adjust medications accordingly. Provide supportive psychotherapy and psychoeducation. The patient provided Substance abuse counseling. Smoke cessation therapy. The patient to attend [facility]. Medication Consent with explanation of risk/benefits and side effects: Explained and obtained. Hernan Snider MD Objective - Vital Signs Vital signs: Vital Signs Temp 98.1 F 10/25/23 06:13 Pulse 77 10/25/23 06:13 Resp 18 10/25/23 06:13 BP 135/82 10/25/23 06:13 Pulse Ox 100 10/25/23 06:13 FiO2 Intake & Output 10/24/23 10/25/23 10/25/23 18:59 06:59 18:59 Weight 104 kg
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
--- NOTE | 2023-10-27 17:10 | P.PN ---
Progress Note - Text Progress Note Date: 10/27/23 In-Patient Follow-up Chief Complaint: I am not ready Subjective: The patient wrote a note that he is not ready to leave and if he is discharged, he would kill himself. The patient told me that he does not want to kill himself. He said it because he was emotional when he wrote it. Later, patient noted that he would not kill himself but will start drinking and then he would kill himself. The patient noted that he wants to go to a rehab from here. The patient noted that he has a place in a rehab program on of this month. He also noted that he does not want to be discharged till because then he can go to his brother, who will back in town by then. He has been attending groups. He is interacting with staff and peers well. He has been compliant with medications. Leading questions: The patient denied Depression and Anxiety. Denied SI or HI. Denied symptoms consistent with psychosis Sleep and Appetite: Fine. Interim History: Behavioral Changes: PRN meds/isolation/restraints/ change in status: None. Change in medical condition: No change. Change in medications: No change. Side effects from Medications: None. Objective- MSE: Alert and attentive. Orientation times three. Dressed and Groomed: Appropriately. Pleasant and cooperative. Psychomotor Activity: Normal. Speech: Normal in tone, quality, and quantity. Mood: Upset, Anxious. Affect: labile. SI or HI: None. Perceptual disturbance: None. Thought Content: No paranoia or other delusional thinking noted. Thought Process: Normal. Cognition: Intact Judgment and Insight: Fair. AIMS: Normal. Labs: No new labs. Diagnosis: No change. Plan and recommendation: Continue current Medications. Monitor MS and side effects of medications and adjust medications accordingly. Provide supportive psychotherapy. The patient provided psychoeducation. The patient provided Substance abuse counseling. Smoke cessation therapy. The patient to continue attending the [facility] activities. Medication Consent with explanation of risk/benefits and side effects: Explained and obtained.
[2023-10-28 06:47] VITALS: RESP 20; TEMP 97.7
[2023-10-28 08:25] VITALS: BP 123/90; PULSE 89
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
== END 2023-10-28 12:30 | DRG 753 ==
LOC: 3MHU 17:15 → UNDOADMIN 17:40 → UNDODISIN 10-28 12:30
PROVIDERS: ADMIT Psychiatry & Neurology Psychiatry; ATTEND Psychiatry & Neurology Psychiatry
DX: F31.81 Bipolar II disorder (principal); F60.3 Borderline personality disorder; F43.10 Post-traumatic stress disorder, unspecified; F10.239 Alcohol dependence with withdrawal, unspecified; D72.829 Elevated white blood cell count, unspecified; F12.90 Cannabis use, unspecified, uncomplicated; F17.200 Nicotine dependence, unspecified, uncomplicated; F43.23 Adjustment disorder with mixed anxiety and depressed mood; I10 Essential (primary) hypertension; I16.0 Hypertensive urgency; I25.2 Old myocardial infarction; J44.89 Other specified chronic obstructive pulmonary disease; R45.851 Suicidal ideations; Z79.899 Other long term (current) drug therapy; Z91.410 Personal history of adult physical and sexual abuse